=== PATIENT | female | born 1980 | race Caucasian/White ===

== ENCOUNTER 2022-01-12 19:43 | Emergency (ER) | payer MEDICAID ==
[~2022-01-12] VITALS: Ht 167.6 cm; Wt 99.8 kg
[2022-01-12 19:50] VITALS: BP_SYST 141
--- NOTE | 2022-01-12 20:32 | NUR ---
Pt brought by self,A&Ox4, pt presents to ER with L wrist pain x 2 months ,denies trauma , states she works at [employer], skin pink and warm, cap refill <3, VSS
[2022-01-12] MEDS ORDERED: IBUPROFEN 600 MG TABLET PO ONE (20:45)
--- NOTE | 2022-01-12 20:45 | NUR ---
Dr Frye evaluating patient at bedside
[2022-01-12 21:43] VITALS: BP_SYST 141
--- NOTE | 2022-01-12 21:44 | NUR ---
Patient given written and verbal discharge instructions and verbalizes understanding. ER MD discussed with patient the results and treatment provided. Patient in stable condition. ID arm band removed. No Rx given. Patient educated on pain management and to follow up with PMD. Pain Scale 3/10. Opportunity for questions provided and answered. Medication side effect fact sheet provided.
== END 2022-01-12 21:43 | disposition home or self-care (01) ==
LOC: SED 19:43
DX: M70.842 Other soft tissue disorders related to use, overuse and pressure, left hand (principal); M25.532 Pain in left wrist; Z88.6 Allergy status to analgesic agent; Z79.899 Other long term (current) drug therapy; X50.0XXA Overexertion from strenuous movement or load, initial encounter; Y93.89 Activity, other specified; Y92.89 Other specified places as the place of occurrence of the external cause; Y99.8 Other external cause status
CPT/HCPCS: 99283